=== PATIENT | female | born 1960 | race Caucasian/White ===

== ENCOUNTER 2017-02-20 17:06 | Emergency (ER) | payer MEDICARE ==
[~2017-02-20 17:06] MED LIST: ASPI325T PO; FURO1TAB93 PO; GLUCTAB PO; IBUP600T26 PO; LEVO.1 PO; METH750T2 PO; NADO1TAB17 PO; OXYB5TAB PO; POTA95TA PO; PROZ40CA PO; SIMV20 PO; VITA100020 IM
[2017-02-20 17:53] VITALS: BP 196/111; PULSE 98; RESP 20; TEMP 99
[2017-02-20 20:01] LABS: BILIRUBIN, URINE NEG (NEG); BLOOD, URINE NEG (NEG); GLUCOSE,URINE NEG (NEG); KETONE, URINE NEG (NEG); NITRITE,URINE NEG (NEG); PH, URINE 6.5 (5.0-8.5); URINE LEUKOCYTE ESTERASE NEG (NEG)
[2017-02-20 20:06] LABS: SQUAMOUS EPITHELIAL CELL URINE 0-5 /hpf (0-5); URINE COLOR YELLOW (YELLW/STRAW); WBC, URINE 0-2 /hpf (0-5)
[2017-02-20] MEDS ORDERED: KETOROLAC TROMETHAMINE 60 MG/2 ML (IM) VIAL IM ONE (20:15)
--- NOTE | 2017-02-20 20:16 | PD ---
HPI Chief Complaint: Musculoskeletal Complaint Time Seen by Provider: 19:59 Travel History International Travel<30 days: No Contact w/Intl Traveler<30days: No Traveled to known affect area: No History of Present Illness HPI Patient is a 56-year-old female coming in with one week of right lateral side pain is been constant and getting progressively worse she took Tylenol and Motrin without relief. She has not seen another doctor for this pain. She says she's been lifting heavy groceries for the holidays. And her is disabled she often has to lift him. In the ER she is nontoxic appearing she has no severe distress no respiratory distress. She has no gallbladder she had her gallbladder out when she had a gastric surgery she had a bleeding ulcer and a complication that led to partial gastrectomy as well as the cholecystectomy. She has also had a partial hysterectomy followed by a total hysterectomy due to ovarian cyst and then endometriosis. She also had a heart attack with a stent in 2009 she's had subsequent echoes and stress which have been normal. She smokes she says but only 3 cigarettes a day and she is trying to quit she denies chest pain she denies nausea vomiting diarrhea no dysuria no history of stones however her daughter does have history of stones in her family history PFSH Past Medical History Anxiety: Yes Depression: Yes Heart Rhythm Problems: No Cancer: No Cardiac Catheterization: Yes Cardiovascular Problems: Yes (STENT) High Cholesterol: Yes Chest Pain: Yes Congestive Heart Failure: No Coronary Artery Disease: Yes Diabetes: Yes Endocrine: Yes Genitourinary: No Hypertension: Yes Immune Disorder: No Implanted Vascular Access Dvce: Yes Musculoskeletal: Yes Neurologic: No Psychiatric: Yes Reproductive: No Respiratory: No Immunizations Current: Yes Seizures: Yes Sleep Apnea: No Menopausal: Yes Past Surgical History Abdominal Surgery: Yes (1/2 STOMACH REMOVED) Body Medical Devices: STENT Cardiac Surgery: Yes (STENT) Coronary Stent: Yes Gynecologic Surgery: Yes (HYSTORECTOMY) Hysterectomy: Yes Other Surgery: Yes Social History Alcohol Use: No Tobacco Use: Yes (electric cigarette) Substance Use: No Allergies-Medications (Allergen,Severity, Reaction): Coded Allergies: No Known Allergies (Verified Adverse Reaction, Unknown, 02/20/17) Reported Meds & Prescriptions Reported Meds & Active Scripts Active Flexeril (Cyclobenzaprine HCl) 10 Mg Tab 10 Mg PO TID Ibuprofen 600 Mg Tab 600 Mg PO Q6H PRN Reported Aspirin 325 Mg Tab 325 Mg PO DAILY Review of Systems Except as stated in HPI: all other systems reviewed are Neg Gastrointestinal: Positive: Abdominal Pain (right-sided rib pain) Physical Exam Narrative GENERAL: In no acute distress but she is holding her right upper lateral aspect of her right ribs ribs when I walk in the room SKIN: Warm and dry. HEAD: Atraumatic. Normocephalic. EYES: Pupils equal and round. No scleral icterus. No injection or drainage. ENT: No nasal bleeding or discharge. Mucous membranes pink and moist. NECK: Trachea midline. No JVD. CARDIOVASCULAR: Regular rate and rhythm. RESPIRATORY: No accessory muscle use. Clear to auscultation. Breath sounds equal bilaterally. GASTROINTESTINAL: Abdomen soft, non-tender, nondistended. Hepatic and splenic margins not palpable. Right rib in her right upper quadrant area is tender it is intercostal-like pain that wraps around all the way to the mid back sided MUSCULOSKELETAL: Extremities without clubbing, cyanosis, or edema. No obvious deformities. NEUROLOGICAL: Awake and alert. No obvious cranial nerve deficits. Motor grossly within normal limits. Five out of 5 muscle strength in the arms and legs. Normal speech. PSYCHIATRIC: Appropriate mood and affect; insight and judgment normal. Data Data Last Documented VS Vital Signs Date Time Temp Pulse Resp B/P (MAP) Pulse Ox O2 Delivery O2 Flow Rate FiO2 02/20/17 21:39 90 16 180/90 (120) 99 02/20/17 17:53 99.0 Orders Orders Urinalysis - C+S If Indicated (02/20/17 17:09) Ribs, Uni (W/Exp Cxr-Min 3vw) (02/20/17 ) Ketorolac Inj (Toradol Inj) (02/20/17 20:15) Labs Laboratory Tests Test 02/20/17 19:45 Urine Color YELLOW Urine Turbidity CLEAR Urine pH 6.5 Urine Specific [place] 1.013 Urine Protein NEG mg/dL Urine Glucose (UA) NEG mg/dL Urine Ketones NEG mg/dL Urine Occult Blood NEG Urine Nitrite NEG Urine Bilirubin NEG Urine Leukocyte Esterase NEG Urine WBC 0-2 /hpf Urine Squamous Epithelial Cells 0-5 /hpf Microscopic Urinalysis Comment CULT NOT INDICATED MDM Medical Decision Making Medical Screen Exam Complete: Yes Emergency Medical Condition: Yes Differential Diagnosis Differential includes rib costochondritis versus rib contusion versus fractured rib pathologic versus pneumonia versus muscle spasms radiculopathy Narrative Course Patient will have rib x-rays done she has no gallbladder patient will have x- rays of the ribs given Toradol and urine will be checked for red cells to possibly rule in renal stones at this time working diagnosis is muscle spasm costochondritis Diagnosis Primary Impression: Costochondral chest pain Additional Impression: Rib pain on right side Scripts Cyclobenzaprine (Flexeril) 10 Mg Tab 10 MG PO TID for Muscle Spasm, #15 TAB 0 Refills Prov: James Mayberry MD 02/20/17 Ibuprofen (Ibuprofen) 600 Mg Tab 600 MG PO Q6H Y for PAIN, #20 TAB 0 Refills Prov: James Mayberry MD 02/20/17 Disposition: 01 DISCHARGE HOME Condition: Good James Mayberry MD Feb 20, 2017 20:16
[2017-02-20] MEDS ORDERED: ASPI-183 PO (20:30)
--- NOTE | 2017-02-20 20:59 | RADRPT ---
EXAM DATE/TIME: 02/20/2017 20:43 [facility] COMPARISON: No previous studies available for comparison. INDICATIONS : Right rib and chest pain with no injury. MEDICAL HISTORY : None. SURGICAL HISTORY : None. ENCOUNTER: Initial ACUITY: 1 day PAIN SCORE: 10/10 LOCATION: Right lower chest and ribs FINDINGS: Multiple views of the right ribs were performed. There is no evidence of displaced fracture. No santhosh tructive lesions or areas of periosteal thickening are seen. Expiratory view of the chest is negativ e for pneumothorax. The mediastinal structures are midline. CONCLUSION: Unremarkable examination of the right ribs and chest. Cholecystectomy clips Mesfin Bergman MD on February 20, 2017 at 20:56 Board Certified Radiologist. This report was verified electronically.
[2017-02-20] MEDS ORDERED: IBUP-232 PO (21:23)
[2017-02-20] MEDS ORDERED: CYCL10TA PO (21:24)
[2017-02-20 21:39] VITALS: BP 180/90
== END 2017-02-20 21:44 | disposition home or self-care (01) ==
LOC: PHED 17:06
DX: R07.82 Intercostal pain (principal); F17.210 Nicotine dependence, cigarettes, uncomplicated
CPT/HCPCS: 71101; 81001; 96372; 99284; J1885